=== PATIENT | female | born 1965 | race Two or more races ===

== ENCOUNTER 2016-08-31 11:17 | Day surgery (SDC) | payer BC ==
[2016-08-27 13:35] VITALS: BMI 32.8
[2016-08-31] MEDS ORDERED: ONDANSETRON 4 MG/2 ML VIAL IVPUSH PRN (12:53)
[2016-08-31] MEDS ORDERED: PROMETHAZINE HCL 25 MG/1 ML VIAL IVPUSH PRN (12:53)
[2016-08-31] MEDS ORDERED: LACTATED RINGERS SOLUTION 1,000 ML IV SCH (13:00)
[2016-08-31] MEDS ORDERED: PROPOFOL 20 ML ONE (13:12)
[2016-08-31] MEDS ORDERED: MIDAZOLAM HCL 2 MG/2 ML SINGLE DOSE VIAL ONE (13:12)
[2016-08-31] MEDS ORDERED: LEVOFLOXACIN 500 MG IVPB 100 ML IVPB ONE (13:30)
[2016-08-31] MEDS ORDERED: LEVOFLOXACIN 500 MG PREMIX BAG IVPB ONE (13:47)
--- NOTE | 2016-08-31 14:35 | OP ---
Operative Note - Note: Operative Date: 08/31/16 Pre-Operative Diagnosis: left renal stone with hydronephrosis Post-Operative Diagnosis: Other (two 5mm left ureteral stones with proximal hydroureter and hydronephrosis) Surgeon: Fercho Herrera Anesthesia: General Operative Report Dictated: Yes
[2016-08-31] MEDS ORDERED: ONDANSETRON 4 MG/2 ML VIAL ONE (15:18)
[2016-08-31 16:09] VITALS: TEMP 98
[2016-08-31 18:10] VITALS: BP 125/68; PULSE 68
--- NOTE | 2016-09-01 15:28 | OP ---
DATE OF OPERATION: 08/31/2016 PREOPERATIVE DIAGNOSIS: Left renal stone. POSTOPERATIVE DIAGNOSIS: Left ureteral stones with hydronephrosis. PROCEDURE: Left extracorporal shockwave lithotripsy. SURGEON: STEW GALO MD ANESTHESIA: General. DESCRIPTION OF PROCEDURE: The patient was brought to the operating room and placed in the supine position on the operating room table. The patient has had significant left renal colic with a history of hydronephrosis. The patient had a previous stone within the kidney. Ultrasonography and fluoroscopy were performed, 2 stones, each measuring 5 mm, were found in the left mid-ureter. Hydronephrosis was noted. There was hydroureter up to the point of the stones. General anesthesia and antibiotics were given. Extracorporeal shockwave lithotripsy was then performed and 3,000 impulses at 18-20 Joules of power were administered with 1500 impulses given to each stone. There was noted to be fragmentation of the stone. The patient will be followed postoperatively with a sonogram. The patient had expressed a desire to avoid ureteroscopy and stent placement. The risks of failure of passage of the stone fragments of expressed to the patient and she wanted to undergo this procedure, knowing the risks and benefits. The patient was discharged to the recovery room and will be observed in the recovery room before discharged to caregiver services home. STEW GALO M.D. [id number]
== END 2016-08-31 18:40 | disposition home or self-care (01) ==
LOC: JASU-SURG 11:17
PROVIDERS: ATTEND Urology
PROC: 0TF7XZZ Fragmentation in Left Ureter, External Approach (ICD-10-PCS; principal; 2016-08-31 13:15)
DX: N20.1 Calculus of ureter (principal); N13.30 Unspecified hydronephrosis
CPT/HCPCS: 84703; 94760